=== PATIENT | male | born 1995 | race Caucasian/White ===

== ENCOUNTER 2021-11-18 08:58 | Outpatient (CLI) | payer OTHER, SELFPAY ==
[2021-11-18 10:02] LABS: PH Semen 8.5 (7.0-8.0); Pathology Referral Yes; Sperm Immotility 50 % (50-60); Sperm Progressive Motility 50 % (31-34); Viscosity Semen Droplets; White Blood Count Semen 0-4 /hpf
== END 2021-11-18 08:59 | disposition home or self-care (01) ==
LOC: LAB 09:13
PROVIDERS: Visit Provider Obstetrics & Gynecology
DX: N46.9 Male infertility, unspecified (principal)
CPT/HCPCS: 80500; 89320